=== PATIENT | female | born 1975 | race Caucasian/White ===

== ENCOUNTER 2017-04-23 10:34 | Emergency (ER) | payer OTHER ==
[2017-04-23 10:39] VITALS: BP 146/91; PULSE 84; TEMP 98.5; BMI 36.6
[2017-04-23] MEDS ORDERED: ALBUTEROL SO4 2.5/IPRATROPIUM 0.5 INH SOL 3 ML VIAL.NEB. NEB ONE ×2 (11:19→11:24)
[2017-04-23] MEDS ORDERED: predniSONE 20 MG TABLET (UD) PO ONE (11:23)
[2017-04-23] MEDS ORDERED: predniSONE 20 MG TABLET (UD) ONE (11:28)
--- NOTE | 2017-04-23 11:32 | PDOC ---
History of Present Illness - General Chief Complaint: Wheezing Stated Complaint: SOB Time Seen by Provider: 04/23/17 11:20 History Source: Patient Exam Limitations: No Limitations - History of Present Illness Initial Comments: 04/23/17 11:50 Came to emergency department for evaluation of tightness of breathing, states has been cleaning her apartment and painting and feels that multiple environmental exposures caused her shortness of breath. Does not have asthma but feels is related to this exposure. Use Benadryl over the past week but has not taken any other medications for relief of same. Went to work this morning and felt tightness to her chest, and audible wheezing. No fever, no phlegm production, no ear or throat pain. 04/23/17 12:47 Timing/Duration: reports: getting worse Severity: reports: mild, moderate Possible Cause: Yes: no prior episodes Associated Symptoms: reports: chest pain/soreness, cough, fever/chills, nasal congestion, wheezing. denies: sore throat Past History - Travel Traveled outside of the country in the last 30 days: No Close contact w/someone who was outside of country & ill: No - Past Medical History Allergies/Adverse Reactions: Allergies Allergy/AdvReac Type Severity Reaction Status Date / Time No Known Allergies Allergy Verified 04/23/17 10:39 Home Medications: Ambulatory Orders Albuterol Sulfate Inhaler - [Ventolin HFA Inhaler -] 1 - 2 inh PO Q4H #1 inhaler 04/23/17 Bupropion HCl [Wellbutrin -] 100 mg PO TID 04/23/17 Fluoxetine HCl [Prozac] 20 mg PO ASDIR 04/23/17 Prednisone [Deltasone -] 20 mg PO BID #8 tablet 04/23/17 Psychiatric Problems: Yes (BIPOLAR, ANXIETY, DEPRESSION) - Psycho/Social/Smoking Cessation Hx Suicidal Ideation: No Smoking History: Never smoked Information on smoking cessation initiated: No Review of Systems - Review of Systems Able to Perform ROS?: Yes Is the patient limited [place] proficient: Yes Constitutional: Yes: Symptoms Reported, See HPI, Malaise. No: Chills, Fever Respiratory: Yes: Symptoms reported, See HPI, Cough, Shortness of Breath, Wheezing Cardiac (ROS): No: Symptoms Reported ABD/GI: No: Symptoms Reported Musculoskeletal: No: Symptoms Reported Integumentary: Yes: Symptoms Reported. No: See HPI Neurological: Yes: Symptoms reported All Other Systems: Reviewed and Negative *Physical Exam - Vital Signs Last Vital Signs Temp Pulse Resp BP Pulse Ox 98.5 F 84 20 146/91 95 04/23/17 10:36 04/23/17 10:36 04/23/17 10:36 04/23/17 10:36 04/23/17 10:36 - Physical Exam General Appearance: Yes: Nourished, Appropriately Dressed, Apparent Distress, Mild Distress HEENT: positive: BRIGID, Normal ENT Inspection, TMs Normal, Pharynx Normal Neck: positive: Supple. negative: Tender Respiratory/Chest: positive: Rhonchi, Wheezing. negative: Lungs Clear, Normal Breath Sounds Gastrointestinal/Abdominal: positive: Soft. 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 Much improved after 3 DuoNeb nebs and 60 mg of prednisone. Will discharge with prednisone and albuterol inhaler and have follow-up with PMD *DC/Admit/Observation/Transfer Diagnosis at time of Disposition: Asthma due to environmental allergies - Discharge Dispostion Disposition: HOME Condition at time of disposition: Stable Admit: No - Prescriptions Prescriptions: Prednisone [Deltasone -] 20 mg PO BID #8 tablet Albuterol Sulfate Inhaler - [Ventolin HFA Inhaler -] 1 - 2 inh PO Q4H #1 inhaler - Patient Instructions Printed Discharge Instructions: DI for Asthma -- Adult Additional Instructions: Rest, drink lots of fluids: Teas, water, soups, Pedialyte Saltwater gargles Steamy showers/seem to face break up mucus Avoid contact with others until fevers and cough resolved Lots of handwashing and good hygiene Continue [id number] medications for symptomatic relief Tylenol or Motrin for fever and pain Continue albuterol nebulizers every 4-6 hours for the next 2 days then as needed for continued cough Prednisone as directed until completed Followup with private physician in one to 2 days Return to emergency department / pediatric hospital for worsened symptoms, fevers, dehydration - Post Discharge Activity Work/School Note: Back to Work
[2017-04-23] MEDS ORDERED: LORATADINE 10 MG TABLET PO ONE (12:09)
== END 2017-04-23 12:51 | disposition home or self-care (01) ==
LOC: JERFT 10:34
PROC: 3E0F7GC Introduction of Other Therapeutic Substance into Respiratory Tract, Via Natural or Artificial Opening (ICD-10-PCS; principal; 2017-04-23)
DX: J45.901 Unspecified asthma with (acute) exacerbation (principal)
CPT/HCPCS: 99281-25